=== PATIENT | female | born 1955 | race Caucasian/White ===

== ENCOUNTER → 2024-06-26 12:31 | Outpatient (REF) | payer OTHER, SELFPAY | LOC: RAD 12:31 | PROVIDERS: ATTENDING PHYSICIAN Student in an Organized Health Care Education/Training Program; FAMILY PHYSICIAN Physician Assistant Medical | DX: E55.9 Vitamin D deficiency, unspecified (principal); M40.04 Postural kyphosis, thoracic region; M81.0 Age-related osteoporosis without current pathological fracture | CPT/HCPCS: 77080 ==

== ENCOUNTER 2024-07-09 16:56 | Emergency (ER) | payer OTHER, SELFPAY ==
[2024-07-09 17:00] VITALS: BP 202/80
[2024-07-09 17:01] VITALS: BP 202/80
[2024-07-09 17:41] LABS: % Basophils 0.7 % (0-2); % Eosinophils 0.9 % (0-6); % Immature Granulocytes 0.3 % (0-0.5); % Lymphocytes 18.2 % (20.5-51.1); % Monocytes 6.7 % (1.7-9.3); % Neutrophils 73.2 % (42.2-75.2); Absolute Basophils 0.1 10^3/uL (0-0.2); Absolute Eosinophils 0.1 10^3/uL (0-0.7); Absolute Lymphocytes 2.2 10^3/uL (1.2-3.4); Absolute Monocytes 0.8 10^3/uL (0.1-0.6); Absolute Neutrophils 8.8 10^3/uL (1.4-6.5); Hematocrit 27.9 % (37.0-47.0); Hemoglobin 9.8 g/dL (12.0-16.0); Mean Corp Hgb Conc. 35.1 g/dL (33.0-37.0); Mean Corpuscular Hgb 31.1 pg (27.0-31.0); Mean Corpuscular Volume 88.6 fL (81.0-99.0); Mean Platelet Volume 9.3 fL (7.4-10.4); Nucleated Red Blood Cells % 0 %; Platelet Count 451 10^3/uL (130-400); Red Blood Cell Count 3.15 10^6/uL (4.20-5.40); Red Cell Dist. Width 14.1 % (11.5-14.5); White Blood Cell Count 12.1 10^3/uL (4.8-10.8)
[2024-07-09 17:54] LABS: ALT (SGPT) 20 U/L (0-35); AST (SGOT) 32 U/L (14-36); Albumin 4.3 g/dl (3.5-5.0); Alkaline Phosphatase 94 U/L (38-126); Blood Urea Nitrogen 13 mg/dl (7-17); Calcium 10.5 mg/dl (8.4-10.2); Carbon Dioxide 30 mmol/L (22-30); Chloride 100 mmol/L (98-107); Glucose 110 mg/dl (70-99); Sodium 140 mmol/L (135-145); Total Bilirubin 0.2 mg/dl (0.2-1.3); Total Protein 7.4 g/dl (6.3-8.2); eGFR > 60.00
[2024-07-09 17:59] LABS: Troponin I < 0.012 ng/ml
[2024-07-09 18:57] VITALS: BP 163/71
[2024-07-09 19:00] VITALS: BMI 19.5
--- NOTE | 2024-07-09 19:04 | ED.GENMED ---
History of Present Illness
General
Chief Complaint: Blood Pressure Problem
Source: patient
Time Seen by Provider: 07/09/24 18:38
History of Present Illness
History of Present Illness:
69-year-old female presents to the emergency room for evaluation of elevated blood pressure. 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 She was referred to her primary care doctor who in turn referred
her to the emergency room. Patient denies chest pain, shortness of breath, headache, focal weakness. Patient's blood pressure was elevated at her primary care doctor office visit in May. At that time plan was to monitor her blood pressure.
Past History
Past History
ED Past Medical History: Hypercholesterolemia, Other (osteoporosis) and Other (anemia)
Social History
Personal:
Living: with family
Employment: Employed
Phy Exam
Physical Exam
Physical Exam:
General: Awake, Alert, Oriented X3. No acute distress.
Vitals: unremarkable
Head: Atraumatic
Eyes: Pupils equal, EOMI
Throat: Airway intact, no exudates
Neck: Trachea midline
Lungs: Clear and equal b/l
Heart: Regular rate, no murmurs
Abd: Soft, Nontender, No pulsatile mass
Neuro: Nonfocal
Skin: Warm, dry, no rash
Extremities: pulses equal b/l, no edema
Course
Orders/Labs/Results
Orders:
Orders
07/09/24 17:02
Electrocardiogram (*1) Urgent
Reason for Study: Chest Pain
EKG- Treatment ONCE
07/09/24 17:23
Complete Blood Count/With Diff Urgent
Comprehensive Metabolic Panel Urgent
Troponin I Urgent
Abnormal Lab Results
07/09/24
17:23
WBC 12.1 H 10^3/uL
(4.8-10.8)
RBC 3.15 L 10^6/uL
(4.20-5.40)
Hgb 9.8 L g/dL
(12.0-16.0)
Hct 27.9 L %
(37.0-47.0)
MCH 31.1 H pg
(27.0-31.0)
Plt Count 451 H 10^3/uL
(130-400)
Absolute Neuts (auto) 8.8 H 10^3/uL
(1.4-6.5)
Absolute Monos (auto) 0.8 H 10^3/uL
(0.1-0.6)
Lymphocytes % 18.2 L %
(20.5-51.1)
Glucose 110 H mg/dl
(70-99)
Calcium 10.5 H mg/dl
(8.4-10.2)
07/09/24 17:23
07/09/24 17:23
Vital Signs
Initial and Last Documented VS:
Initial Vital Signs
Temp Pulse Resp BP Pulse Ox
98.8 F 71 18 202/80 97
07/09/24 17:00 07/09/24 17:00 07/09/24 17:00 07/09/24 17:00 07/09/24 17:00
Last Documented Vital Signs
Temp Pulse Resp BP Pulse Ox
98.8 F 68 18 163/71 96
07/09/24 17:00 07/09/24 18:57 07/09/24 17:00 07/09/24 18:57 07/09/24 19:05
MDM/Problems Addressed
Differential Diagnosis Includes:
Uncontrolled hypertension, renal insufficiency, electrode abnormality
MDM/Problems Addressed:
Patient's labs unremarkable. Patient's blood pressure is elevated but she does not have signs of endorgan damage. Will initiate antihypertensive medication with lisinopril. Patient can follow-up with her primary care doctor
*Pulse Oximetry
Patient hypoxic: no
*EKG
Interpreted by ED Provider?: Yes
Heart Rate: 74
Rate: normal
Rhythm: sinus
[place]: normal axis
Interval: normal interval
QRS Pattern: left vent hypertrophy
Ischemia: non-specific ST changes
*Printed Circuit Board Assembler Interpretation
Rate: normal
Interpretation: normal
Rhythm: sinus
*Critical Care Note
Total Time (30-74mins, 75-104mins- exclusive of procedures): Not Applicable
ED Attending Note
-
Portions of this chart may have been created with voice recognition software.� Occasional wrong word or��sound alike� substitutions may have occurred due to the inherent limitations of voice recognition software.
Discharge Plan
Departure
Patient Disposition: Home (Routine Discharge)
Date of Disposition: 07/09/24
Time of Disposition: 19:04
Patient with high blood pressure during this ER visit?: Yes
Condition: Good
Discharge Problem:
Hypertension
Instructions: High Blood Pressure (DC)
Prescriptions:
New
lisinopril 10 mg tablet
10 mg PO DAILY Qty: 30 0RF
No Action
venlafaxine [Effexor XR] 150 MG capsule,extended release 24hr
150 mg PO DAILY
pravastatin 20 MG tablet
20 mg PO DAILY
omega-3 fatty acids-fish oil [Fish Oil] 1,000 MG capsule
1 cap PO DAILY
Calcium Citrate With Vitamin D
1 tab PO DAILY
Centrum Silver Tablet
1 tab PO DAILY
Iron
200 mg PO DAILY
Reclast 5 mg/100 ml Solution:
.YEARLY
Interventions
Interventions:
*Risk Screen - Suicide Last Done: 07/09/24 17:01
*General Assessment Last Done: 07/09/24 17:01
*Neglect/Abuse Screening Last Done: 07/09/24 17:01
ED- Fall Risk Assessment Last Done: 07/09/24 19:05
*ED COVID-19 Vaccine History Last Done: 07/09/24 17:02
*Nursing Disposition Last Done: 07/09/24 19:28
ED- Cardiac Assessment Last Done: 07/09/24 19:05
ED- Neurological Assessment Last Done: 07/09/24 19:05
ED- Pulmonary Assessment Last Done: 07/09/24 19:05
Discharge Date and Time
Discharge Date/Time: 07/09/24 19:29
Print Language: CROATIAN
== END 2024-07-09 19:29 | disposition home or self-care (01) ==
LOC: EMR 16:56
PROVIDERS: Emergency Medicine; EMERGENCY PHYSICIAN Emergency Medicine; FAMILY PHYSICIAN Physician Assistant Medical
DX: I10 Essential (primary) hypertension (principal); E78.00 Pure hypercholesterolemia, unspecified; M81.0 Age-related osteoporosis without current pathological fracture
CPT/HCPCS: 99283; 80053; 84484; 85025; 93005